=== PATIENT | male | born 1945 | race Two or more races ===

== ENCOUNTER 2022-04-25 20:07 | Inpatient (IN) | payer MEDICARE, OTHER ==
[~2022-04-25] VITALS: Ht 144.8 cm; Wt 55.3 kg
[2022-04-25 20:25] VITALS: BP 146/73
--- NOTE | 2022-04-25 20:30 | NUR ---
RN NOTE: ADMITTED A 76-Y/O, MALE, FROM [facility]. ADMITTED ON A 5150 HOLD FOR GD. PER HOLD, PATIENT WAS WALKING ON THE FREEWAY WITH A BOTTLE OF KETCHUP. UPON FACE TO FACE EVALUATION, PATIENT IS ALERT AND ORIENTED X1, PATIENT IS ANXIOUS, GUARDED, UNKEMPT, DISHEVELED AND POOR HYGIENE. SKIN ASSESSMENT DONE NOTED WITH HEAD LICE. TREATMENT DONE. SHOWERED GIVEN AND AGREED TO SHAVE HIS HAIR PER MD PHELPS ORDER. ALL BELONGINGS WERE SCREENED FOR CONTRABAND. PATIENT REFUSED TO SIGN ALL ADMITTING/CONSENT PAPERWORK DUE TO CONFUSION. PATIENT'S RIGHTS WERE DISCUSSED AND BOOKLET WAS GIVEN. CONTACTED DR. JUNG AND HOSPITALIST OMAIRA PHELPS AND INFORMED THEM OF THE ADMISSION. BED IN LOWEST POSITION, LOCKED. SAFETY PRECAUTIONS MAINTAINED. WILL CONTINUE TO MONITOR Q15 MINS FOR MOOD, SAFETY AND BEHAVIOR. Addendum: 04/26/22 at 0544 by AHMET OSULLIVAN RN PATIENT IS ON CONTACT ISOLATION FOR HEAD LICE. ISOLATION PRECAUTIONS OBSERVED. Addendum: 04/26/22 at 0643 by AHMET OSULLIVAN RN OFFERED PNEUMONIA/FLU VACCINE PATIENT REFUSED.
[2022-04-25] MEDS ORDERED: PERMETHRIN 59 ML BOTTLE TP ONE (21:00)
[2022-04-25] MEDS ORDERED: BLOOD SUGAR DIAGNOSTIC 1 EACH STRIP IN ONE (21:30)
[2022-04-25] MEDS ORDERED: MAGNESIUM HYDROXIDE 30 ML UDC PO PRN (21:30)
[2022-04-25] MEDS ORDERED: MAG HYDROX/AL HYDROX/SIMETH 30 ML UDC PO PRN (21:30)
[2022-04-25] MEDS ORDERED: ACETAMINOPHEN 325 MG TABLET PO PRN (21:30)
[2022-04-26 08:00] VITALS: BP 116/62
--- NOTE | 2022-04-26 08:01 | NUR ---
WOUND CARE CONSULT: PT PRESENTS WITH REDNESS TO SCALP, ESPECIALLY BEHIND RT EAR AND POSTERIOR HEAD, SOME DISCOLORATIONS TO UPPER AND LOWER EXTREMITIES, ALL PRESENT ON ADMISSION. NO DRAINAGE, TENDERNESS OR ITCHING PER PT. PT WAS TREATED FOR HEADLICE PREVIOUSLY. WILL SEE PRN.
--- NOTE | 2022-04-26 11:07 | NUR ---
SHARAD Clinical Note: Pt placed on a 5150 hold for GD. Pt was drinking a ketchup bottle and was on the freeway. Pt unable to give any information. Unsure if pt is homeless or has an apartment. Pt's hold indicates, neighbors report pt has no keys to his apartment and has developed dementia. Pt has no supportive contact at this time to confirm. SHARAD will work with the MD and pt to help coordinate appropriate discharge.
--- NOTE | 2022-04-26 11:07 | NUR ---
SHARAD Initial Discharge Note: Pt unable to give any information. Unsure if pt is homeless or has an apartment. Pt's hold indicates, neighbors report pt has no keys to his apartment and has developed dementia. Pt has no supportive contact at this time to confirm. SHARAD will work with the MD and pt to help coordinate appropriate discharge.
--- NOTE | 2022-04-26 11:07 | NUR ---
Treatment Plan: Pt refused to sign treatment plan and was confused.
[2022-04-26] MEDS: THIAMINE HCL 100 MG TABLET PO SCH (13:31)
[2022-04-26] MEDS: OLANZAPINE 2.5 MG TABLET PO SCH ×2 (13:38→21:44)
--- NOTE | 2022-04-26 15:02 | NUR ---
Social Work Note/Substance Abuse Intervention: Patient was provided with a brief substance abuse intervention and referred to [facility] ([phone]), [facility] ([phone]), and [facility] ([phone]) for drinking alcohol.
--- NOTE | 2022-04-26 15:08 | NUR ---
APS: SHARAD filed for [facility]PS intake #[id number] for self neglect at home.
[2022-04-26 16:00] VITALS: BP 122/65
--- NOTE | 2022-04-26 18:16 | NUR ---
PHYSICAL THERAPY PROFESSOR NOTE PATIENT TOOK SHOWER AT 0800, PATIENT MED COMPLIANT AND COOPERATIVE. WOUND CONSULT COMPLETED AND NO WOUNDS FOUND. PT EVAL CONDUCTED AND PATIENT DETERMINED TO BE AMBULATORY WITH STEADY GAIT. PATIENT IS PRIMARILY PORTUGUESE SPEAKING A0X3.
[2022-04-26 19:55] VITALS: BP 133/64
[2022-04-27 08:00] VITALS: BP 130/94
[2022-04-27] MEDS: OLANZAPINE 2.5 MG TABLET PO SCH ×2 (09:04→20:01)
[2022-04-27] MEDS: THIAMINE HCL 100 MG TABLET PO SCH (09:04)
--- NOTE | 2022-04-27 10:47 | NUR ---
SHARAD Family Contact: SHARAD contacted pt's niece Elisabeth ([phone]) and she reported that pt has been residing at a Senior Housing. She stated that he has been a stubborn man. She reported that his mental illness has declined for the past year. She stated that he was missing for a week from the senior housing and she had filed a police report. She states that every week she visits him to care for him. SHARAD recommended nursing facility and she was agreeable of this. Addendum: 04/28/22 at 1131 by SHARAD PROCTOR Correction niece name is Disha
[2022-04-27 16:00] VITALS: BP 118/81
[2022-04-27] MEDS: LORAZEPAM 0.5 MG TABLET PO PRN (20:01)
[2022-04-27 20:03] VITALS: BP 149/61
[2022-04-27] MEDS: TEMAZEPAM 7.5 MG CAPSULE PO PRN (21:06)
[2022-04-28] MEDS: LORAZEPAM 0.5 MG TABLET PO PRN ×2 (03:13→23:12)
[2022-04-28 08:00] VITALS: BP 138/68
[2022-04-28] MEDS: OLANZAPINE 2.5 MG TABLET PO SCH ×2 (08:39→17:07)
[2022-04-28] MEDS: THIAMINE HCL 100 MG TABLET PO SCH (08:39)
--- NOTE | 2022-04-28 11:31 | NUR ---
SHARAD Family Contact: SHARAD contacted pt's niece Disha ([phone]) who stated that she is unaware if pt has ever had any hallucinations. She is unsure if pt has been diagnosed with any mental illness in the past. She stated within the year he has developed dementia and has been aware of this. She reported he has had one episode of paranoia going into the car thinking that people are after him. SHARAD shared this information with the doctor.
[2022-04-28 16:00] VITALS: BP 134/64
--- NOTE | 2022-04-28 19:20 | NUR ---
RN notes Received Pt in [facility]. Pt is in contact isolation. Pt is alert and orientedX1, calm, confused, disoriented, disorganized, and meds compliant. Pt speaks Mexican and able to make needs known. On room air. no SOB. No S/S of distress noted. VS is stable. Reality orientation provided. snacks is given and provided. Pt ate well. Safety precautions is maintained. Will continue to monitor Q 15 mins checks for safety and behavior.
[2022-04-28 19:53] VITALS: BP 120/63
[2022-04-28] MEDS ORDERED: OLANZAPINE 10 MG TABLET PO SCH (21:00)
[2022-04-28] MEDS: TEMAZEPAM 7.5 MG CAPSULE PO PRN (21:38)
--- NOTE | 2022-04-28 23:15 | NUR ---
RN notes Pt is feeling anxious. administered ativan as ordered for anxiety. safety precautions is maintained. will continue to monitor.
[2022-04-29] MEDS ORDERED: Z GUARD REMEDY 4 OZ OINT TP PRN (00:30)
[2022-04-29 08:00] VITALS: BP 130/63
[2022-04-29] MEDS: THIAMINE HCL 100 MG TABLET PO SCH (08:04)
[2022-04-29] MEDS: OLANZAPINE 2.5 MG TABLET PO SCH ×2 (08:04→16:12)
[2022-04-29] MEDS: Z GUARD REMEDY 4 OZ OINT TP SCH (08:36)
[2022-04-29 16:00] VITALS: BP 126/70
[2022-04-29 19:58] VITALS: BP 138/65
[2022-04-29 20:00] VITALS: BP 138/65
[2022-04-29] MEDS ORDERED: OLANZAPINE 10 MG TABLET PO SCH (21:00)
--- NOTE | 2022-04-30 05:15 | NUR ---
CLOSING NOTES: WHEN NAME SPOKEN WILL OPEN EYES AND GIVE EYE CONTACT, THEN CLOSE THEM AGAIN WHEN MEDICATION PLACED IN APPLESAUCE AND SPOON TOUCHING HIS LIPS HE WILL OPEN HIS MOUTH AND TAKE THE MEDICATION AND SWALLOW W/O PROBLEM. CONTACT ISOLATION D/T LICE INFESTATION WHEN ADMITTED SLEPT THRU THE NIGHT, WHEN CHECKING IN ON HIM NOTED HE CHANGES HIS OWN POSITION AUGUST OLIVAREZ
--- NOTE | 2022-04-30 07:40 | NUR ---
RN notes Received Pt in bed, Pt is in contact isolation.alert and orientedX1, calm, disoriented, disorganized, and meds compliant. Pt speaks Maltese and able to make needs known. On room air. no SOB. No S/S of distress noted. VS is stable. Reality orientation provided. snacks is given and provided. Pt ate well. Safety precautions is maintained. Will continue to monitor Q 15 mins checks for safety and behavior.
[2022-04-30 08:00] VITALS: BP 115/62
[2022-04-30] MEDS: OLANZAPINE 2.5 MG TABLET PO SCH ×2 (08:18→16:25)
[2022-04-30] MEDS: THIAMINE HCL 100 MG TABLET PO SCH (08:18)
[2022-04-30] MEDS: Z GUARD REMEDY 4 OZ OINT TP SCH (09:12)
--- NOTE | 2022-04-30 09:19 | NUR ---
Court Notification: SHARAD contacted pt's niece Disha ([phone]) and left a voicemail of [phone] hearing today.
[2022-04-30 16:00] VITALS: BP 115/66
--- NOTE | 2022-04-30 16:00 | NUR ---
Court Hearing: Patient's court hearing for [id number] hearing was today and it was upheld for GD.
--- NOTE | 2022-04-30 18:28 | NUR ---
RN notes Pt stays in room all throughout the shift, still in contact isolation. Patient is ambulatory, able to to make needs known. alert and orientedx1, calm, confused and meds compliant. On room air. no SOB. No S/S of distress noted. VS is stable. Reality orientation provided. snacks is given in between meals, care rendered. Kept patient tidy and comfortable. Safety precautions is maintained. Will endorsed to next nurse.
--- NOTE | 2022-04-30 18:47 | NUR ---
Dr. Gilbert and Karl CASTANO made aware of the EKG and no new order.
--- NOTE | 2022-04-30 19:27 | NUR ---
GPS RN NOTE, RECEIVED PATIENT AWAKE AND IN BED, NO S/S OR COMPLAINTS OF PAIN AT THIS TIME. PATIENT IS DISPLAYING NO S/S OF APPARENT DISTRESS AT THIS TIME. PATIENT BREATHING IS UNLABORED WITH EQUAL RISE AND FALL OF THE CHEST. PATIENT IS ALERT AND ORIENTED X 2 ON ROOM AIR WITH A SPO2 98%. PATIENT IS COMPLIANT WITH MEDICATION, ANXIOUS, RESTLESS, PARANOID AT TIMES, CONFUSED, FORGETFUL, AND COOPERATIVE. PATIENT DENIES SUICIDAL AND HOMICIDAL IDEATIONS AT THIS TIME. PATIENT ASSISTED WITH TURNING AND REPOSITIONING Q2HR AND PRN FOR COMFORT AND CIRCULATION. PATIENT HAS NO NEEDS AT THIS TIME. PATIENT EDUCATED ON THE USE OF THE CALL GALICIA. PATIENT BED SIDE RAILS UP X 2 FOR SAFETY. PATIENT BED IS LOCKED AND LOW. WILL CONTINUE TO MONITOR THIS PATIENT Q15 MINUTES WITH THE HELP OF STAFF TO MAINTAIN SAFETY.
[2022-04-30 20:44] VITALS: BP 121/62
[2022-04-30] MEDS: OLANZAPINE 10 MG TABLET PO SCH (21:18)
[2022-05-01 08:00] VITALS: BP 113/67
[2022-05-01] MEDS: THIAMINE HCL 100 MG TABLET PO SCH (08:07)
[2022-05-01] MEDS: OLANZAPINE 2.5 MG TABLET PO SCH ×2 (08:07→16:31)
[2022-05-01] MEDS: Z GUARD REMEDY 4 OZ OINT TP SCH (10:30)
--- NOTE | 2022-05-01 10:35 | NUR ---
RN Notes: Received pt.awake in bed, responsive to staffs and kenyan speaking. Ate 100% for breakfast, compliant on meds and morning care rendered. Pt. isolates in her room, unkept and quiet. Encouraged to verbalize feelings and encouraged to take shower. Needs attended, no distress and no agitation noted. Will continue to monitor for safety.
[2022-05-01] MEDS: LORAZEPAM 0.5 MG TABLET PO PRN (14:31)
[2022-05-01 16:00] VITALS: BP 135/71
[2022-05-01 20:08] VITALS: BP 122/65
[2022-05-01] MEDS: OLANZAPINE 10 MG TABLET PO SCH (20:16)
[2022-05-02 08:00] VITALS: BP 150/70
[2022-05-02] MEDS: Z GUARD REMEDY 4 OZ OINT TP SCH (09:13)
[2022-05-02] MEDS: OLANZAPINE 2.5 MG TABLET PO SCH ×2 (09:13→17:33)
[2022-05-02] MEDS: THIAMINE HCL 100 MG TABLET PO SCH (09:13)
[2022-05-02] MEDS ORDERED: PERMETHRIN 59 ML BOTTLE TP ONE (13:00)
[2022-05-02 16:00] VITALS: BP 131/70
--- NOTE | 2022-05-02 17:00 | NUR ---
NURSE NOTE: SECOND TREATMENT OF NIX DONE. PT RORY WELL, NO VISIBLE LICE NOTED.
--- NOTE | 2022-05-02 18:30 | NUR ---
NURSE NOTE: SWELLING NOTED TO FEET BILAT. ELEVATED LEGS WHILE IN CHAIR.
[2022-05-02 20:08] VITALS: BP 137/67
[2022-05-02] MEDS: OLANZAPINE 10 MG TABLET PO SCH (20:29)
[2022-05-03 08:00] VITALS: BP 137/65
[2022-05-03] MEDS: THIAMINE HCL 100 MG TABLET PO SCH (08:18)
[2022-05-03] MEDS: Z GUARD REMEDY 4 OZ OINT TP SCH (08:18)
[2022-05-03] MEDS: OLANZAPINE 2.5 MG TABLET PO SCH ×2 (08:18→17:11)
--- NOTE | 2022-05-03 14:20 | NUR ---
SNF Referral: SHARAD sent clinicals to [facility] [phone], to [facility] for placement. SW sent H & P, progress notes, and medication list.
[2022-05-03 16:00] VITALS: BP 137/62
[2022-05-03 20:01] VITALS: BP 110/58
[2022-05-03] MEDS: OLANZAPINE 10 MG TABLET PO SCH (20:19)
[2022-05-04] MEDS: TEMAZEPAM 7.5 MG CAPSULE PO PRN ×2 (01:23→22:10)
[2022-05-04 08:00] VITALS: BP 109/66
[2022-05-04] MEDS: THIAMINE HCL 100 MG TABLET PO SCH (08:45)
[2022-05-04] MEDS: OLANZAPINE 2.5 MG TABLET PO SCH ×2 (08:45→17:10)
[2022-05-04] MEDS: Z GUARD REMEDY 4 OZ OINT TP SCH (09:29)
--- NOTE | 2022-05-04 10:40 | NUR ---
SNF Contact: SW spoke with [facility] [phone], to Terry higuera who stated pt is accepted.
[2022-05-04 16:00] VITALS: BP 112/63
[2022-05-04 20:01] VITALS: BP 144/64
[2022-05-04] MEDS: OLANZAPINE 10 MG TABLET PO SCH (21:05)
[2022-05-04] MEDS: LORAZEPAM 0.5 MG TABLET PO PRN (21:06)
[2022-05-05 08:00] VITALS: BP 133/63
--- NOTE | 2022-05-05 08:26 | NUR ---
WOUND CARE CONSULT: PT SEEN FOR LEFT LOWER LEG REDNESS. DR FLYNN CALLED FOR DPM CONSULT. MD IN AGREEMENT WITH PLAN OF CARE.
[2022-05-05] MEDS: THIAMINE HCL 100 MG TABLET PO SCH (09:28)
[2022-05-05] MEDS: OLANZAPINE 2.5 MG TABLET PO SCH ×2 (09:28→17:44)
[2022-05-05] MEDS: Z GUARD REMEDY 4 OZ OINT TP SCH (09:55)
[2022-05-05 16:00] VITALS: BP 122/59
[2022-05-05 20:41] VITALS: BP 122/64
[2022-05-05] MEDS: OLANZAPINE 10 MG TABLET PO SCH (21:29)
[2022-05-05] MEDS: TEMAZEPAM 7.5 MG CAPSULE PO PRN (22:27)
[2022-05-06] MEDS: LORAZEPAM 0.5 MG TABLET PO PRN (01:13)
[2022-05-06 08:00] VITALS: BP 117/76
[2022-05-06] MEDS: OLANZAPINE 2.5 MG TABLET PO SCH (08:32)
[2022-05-06] MEDS: THIAMINE HCL 100 MG TABLET PO SCH (08:32)
[2022-05-06] MEDS: Z GUARD REMEDY 4 OZ OINT TP SCH (08:51)
--- NOTE | 2022-05-06 09:50 | NUR ---
RN Notes: Received pt. asleep in bed, breathing is even and unlabored. Ate 100% for breakfast, compliant on meds. Pt. is confused and disoriented and was reoriented to person, place, day, date and situation. Pt. is unkempt and disheveled and offered to take shower. Needs attended and will continue to monitor for safety.
[2022-05-06 16:00] VITALS: BP 122/67
--- NOTE | 2022-05-06 19:30 | NUR ---
GPS RN NOTE, RECEIVED PATIENT AWAKE AND IN BED, NO S/S OR COMPLAINTS OF PAIN AT THIS TIME. PATIENT IS DISPLAYING NO S/S OF APPARENT DISTRESS AT THIS TIME. PATIENT BREATHING IS UNLABORED WITH EQUAL RISE AND FALL OF THE CHEST. PATIENT IS ALERT AND ORIENTED X 1 ON ROOM AIR WITH A SPO2 98%. PATIENT IS COMPLIANT WITH MEDICATION, ANXIOUS, RESTLESS, PARANOID AT TIMES, CITIZEN OF [place] SPEAKING, AND COOPERATIVE. PATIENT DENIES SUICIDAL AND HOMICIDAL IDEATIONS AT THIS TIME. PATIENT ASSISTED WITH TURNING AND REPOSITIONING Q2HR AND PRN FOR COMFORT AND CIRCULATION. PATIENT HAS NO NEEDS AT THIS TIME. PATIENT EDUCATED ON THE USE OF THE CALL GALICIA. PATIENT BED SIDE RAILS UP X 2 FOR SAFETY. PATIENT BED IS LOCKED AND LOW. WILL CONTINUE TO MONITOR THIS PATIENT Q15 MINUTES WITH THE HELP OF STAFF TO MAINTAIN SAFETY.
[2022-05-06 20:21] VITALS: BP 132/60
[2022-05-06] MEDS: OLANZAPINE 10 MG TABLET PO SCH (21:20)
[2022-05-07] MEDS: TEMAZEPAM 7.5 MG CAPSULE PO PRN (01:51)
--- NOTE | 2022-05-07 01:51 | NUR ---
GPS RN NOTE, PATIENT HAS A COMPLAINT OF NOT BEING ABLE TO SLEEP AND IS REQUESTING RESTORIL AT THIS TIME. PATIENT VITAL SIGNS ARE STABLE. GAVE RESTORIL 7.5MG PO QHS PRN ORDERED. WILL REASSESS FOR INSOMNIA AND I WILL CONTINUE TO MONITOR THIS PATIENT WITH THE HELP OF STAFF.
[2022-05-07 08:00] VITALS: BP 133/76
[2022-05-07] MEDS: OLANZAPINE 2.5 MG TABLET PO SCH (09:48)
[2022-05-07] MEDS: THIAMINE HCL 100 MG TABLET PO SCH (09:48)
[2022-05-07] MEDS: Z GUARD REMEDY 4 OZ OINT TP SCH (09:48)
--- NOTE | 2022-05-07 10:35 | NUR ---
RN Notes: Received pt. asleep in bed, breathing is even and unlabored. Ate 100% for breakfast, compliant on meds. Pt. is confused and disoriented and was reoriented to person, place, day, date and situation. No distress and no agitation noted. Needs attended and will continue to monitor for safety.
[2022-05-07 15:00] LABS: BASOPHILS % (AUTO) 0.5 % (0.0-2.0); EOSINOPHILS % (AUTO) 2.2 % (0.0-6.0); HEMATOCRIT 36 % (39-51); HEMOGLOBIN 11.9 g/dL (13.5-17.5); LYMPHOCYTES # (AUTO) 2.1 K/uL (0.8-4.8); LYMPHOCYTES % (AUTO) 24.8 % (20.0-44.0); MEAN CORPUSCULAR HGB CONC 33 g/dl (31.0-36.0); MEAN CORPUSCULAR VOLUME 93 fL (80-96); MONOCYTES # (AUTO) 0.7 K/uL (0.1-1.30); MONOCYTES % (AUTO) 7.9 % (2.0-12.0); NEUTROPHILS # (AUTO) 5.4 K/uL (1.8-8.9); NEUTROPHILS % (AUTO) 64.6 % (43.0-81.0); PLATELET COUNT (AUTO) 192 K/uL (150-450); RED BLOOD CELL COUNT(AUTO) 3.91 MIL/uL (4.5-6.0); WHITE BLOOD COUNT (AUTO) 8.4 K/uL (4.3-11.0)
[2022-05-07 16:00] VITALS: BP 131/71
[2022-05-07 16:35] LABS: ALBUMIN 3.1 g/dL (3.4-5.0); BILIRUBIN,TOTAL 0.2 mg/dL (0.2-1.0); CALCIUM, SERUM 8.9 mg/dL (8.5-10.1); CREATININE 0.7 mg/dL (0.6-1.3); POTASSIUM 4.1 mmol/L (3.5-5.1); TOTAL PROTEIN, SERUM 7.2 g/dL (6.4-8.2)
[2022-05-07 20:00] VITALS: BP 136/71
--- NOTE | 2022-05-07 20:05 | NUR ---
GPS RAILROAD AUDITOR NOTE.RN Notes:RECEIVED PATIENT ASLEEP COMFORTABLY IN BED.BREATHING EVEN AND NON-LABORED.MEDICATION COMPLIANT,CONFUSED AND DISORIENTED.REORIENTED TO PERSON ,PLACE,DAY,DATE AND SITUATION.NO DISTRESS NOTED.ALL NEED MET AND ANTICIPATED .WILL CONTINUE TO MONITOR FOR SAFETY AND BEHAVIOR. Received pt. asleep in bed, breathing is even and unlabored.compliant on meds. Pt. is confused and disoriented and was reoriented to person, place, day, date and situation. No distress and no agitation noted. Needs attended and will continue to monitor for safety. Addendum: 05/07/22 at 2016 by JUAN M DELGADILLO RN DISREGARD 2ND PARAGRAPH.
[2022-05-07] MEDS: OLANZAPINE 10 MG TABLET PO SCH (21:43)
[2022-05-08] MEDS: TEMAZEPAM 7.5 MG CAPSULE PO PRN (01:44)
--- NOTE | 2022-05-08 01:45 | NUR ---
GPS TECHNICAL TRANSLATOR NOTE, PATIENT HAS A COMPLAINT OF NOT BEING ABLE TO SLEEP AND IS REQUESTING RESTORIL AT THIS TIME. PATIENT VITAL SIGNS ARE STABLE. GAVE RESTORIL 7.5MG PO QHS PRN ORDERED. WILL REASSESS FOR INSOMNIA AND I WILL CONTINUE TO MONITOR THIS PATIENT WITH THE HELP OF STAFF.
--- NOTE | 2022-05-08 02:44 | NUR ---
GPS COOK CAMP NOTES:PATIENT C/O OF INSONMIA .ADMINISTERED PRN RESTORIL 7.5 MG NOT EFFECTIVE
[2022-05-08 08:00] VITALS: BP 129/61
[2022-05-08] MEDS: OLANZAPINE 2.5 MG TABLET PO SCH (08:39)
[2022-05-08] MEDS: THIAMINE HCL 100 MG TABLET PO SCH (08:39)
[2022-05-08] MEDS: Z GUARD REMEDY 4 OZ OINT TP SCH (10:38)
[2022-05-08 16:00] VITALS: BP 126/62
[2022-05-08] MEDS: LORAZEPAM 0.5 MG TABLET PO PRN (16:38)
--- NOTE | 2022-05-08 16:41 | NUR ---
RN-NOTES NOTED PATIENT VERY ANXIOUS,WANDERING TO OTHER ROOMS AND WANTED TO GO HOME, REDIRECTED AND ATIVAN 0.5MG P.O GIVEN PRN ORDER. WILL CONT. MONITORING FOR SAFETY AND BEHAVIOR.
--- NOTE | 2022-05-08 17:45 | NUR ---
RN-NOTES PATIENT IN THE DAY ROOM UP IN THE ELIZABETH CHAIR AWAKE,A/O X2,CALM NO ACUTE DISTRESS NOTED.
--- NOTE | 2022-05-08 18:02 | NUR ---
RN-NOTES PATIENT IS VISIBLE IN THE UNIT,A/OX 2, NOTED PATIENT WANDERING TO OTHER PATIENT'S ROOM,NEEDS FREQUENT REDIRECTIONS. COMPLIANT WITH MEDICATIONS.AMBULATORY STEADY GAIT. ALL NEEDS ATTENDED AND ANTICIPATED. WILL CONT. MONITORING FOR SAFETY AND BEHAVIOR.WILL ENDORSE TO INCOMING NURSE FOR THE CONTINUITY OF CARE.
--- NOTE | 2022-05-08 19:53 | NUR ---
AUTO SERVICE ADVISOR NOTES RECEIVED PATIENT AWAKE .ALERT AND ORIENTED X2.BREATHING EVEN AND NON-LABORED NO DISTRESS NOTED. NOTED PATIENT WANDERING TO OTHER PATIENT'S ROOM,NEEDS FREQUENT REDIRECTIONS. COMPLIANT WITH MEDICATIONS.AMBULATORY STEADY GAIT. ALL NEEDS ATTENDED AND ANTICIPATED. WILL CONT. MONITORING FOR SAFETY AND BEHAVIOR.
[2022-05-08 20:19] VITALS: BP 137/61
[2022-05-08] MEDS: OLANZAPINE 10 MG TABLET PO SCH (21:19)
[2022-05-09] MEDS: LORAZEPAM 0.5 MG TABLET PO PRN (03:17)
--- NOTE | 2022-05-09 03:20 | NUR ---
FORESTRY SUPPORT SPECIALIST-NOTES NOTED PATIENT VERY ANXIOUS,REQUESTING ATIVAN 0.5MG P.O GIVEN PRN ORDER. WILL CONT. MONITORING FOR SAFETY AND BEHAVIOR.
[2022-05-09 08:00] VITALS: BP 124/58
[2022-05-09] MEDS: THIAMINE HCL 100 MG TABLET PO SCH (08:32)
[2022-05-09] MEDS: OLANZAPINE 2.5 MG TABLET PO SCH (08:35)
[2022-05-09] MEDS: Z GUARD REMEDY 4 OZ OINT TP SCH (08:35)
--- NOTE | 2022-05-09 19:30 | NUR ---
RN OPENING NOTES RECEIVED PATIENT AWAKE IN BED. PATIENT IS ALERT TIMES 2. BERMUDIAN SPEAKER. ABLE TO MAKE NEEDS KNOWN. NO ISOLATION. NO PAIN NOTED. NO SOB NOTED . NO DISTRESS NOTED. AMBULATORY. NO ANXIETY NOTED. NO DISCOMFORT NOTED AT THIS TIME. ALL SAFETY MEASURES IN PLACE. BED LOCKED IN THE LOWEST POSITION. TABLE IN EASY REACH. SIDE RAILS UP TIMES 2. WILL CONTINUE TO MONITOR CLOSELY.
[2022-05-09] MEDS: OLANZAPINE 10 MG TABLET PO SCH (20:02)
[2022-05-09 20:24] VITALS: BP 101/57
[2022-05-10 08:00] VITALS: BP 107/63
--- NOTE | 2022-05-10 08:08 | NUR ---
SW Discharge Note: Patient will be discharged to senior living facility [facility] [address], [place] [address]; ). Please arrange transportation at 1PM. Box Annealer spoke with Terry degree clerk at [facility]; ([phone], who stated patient will be accepted today. Pts patrick Gauhtier ([phone]) is aware and agreeable. Patient is alert and oriented x2 and is unable to plan for self-care. Patient denies any suicidal or homicidal ideations. Patient is aware and agreeable with discharge plans. Patient will continue to follow-up with (psychiatrist) Dr. Gilbert [address] [facility] [address], [place] [address]; ([phone]) and (weblogic administrator) Dr. Gallegos [address] [facility] [address], [place] [address]; ([phone]). Patient presents with euthymic and congruent mood.
[2022-05-10] MEDS: THIAMINE HCL 100 MG TABLET PO SCH (08:21)
[2022-05-10] MEDS: Z GUARD REMEDY 4 OZ OINT TP SCH (08:21)
[2022-05-10] MEDS: OLANZAPINE 2.5 MG TABLET PO SCH (08:21)
--- NOTE | 2022-05-10 11:10 | NUR ---
RN- NOTES DR. JUNG ORDERED TO DISCONTINUE HOLD AND DISCHARGE TO [facility], [address] [place] [address]. DR. JUNG ORDERED TO CONTINUE WITH ALL MEDICATIONS, INCLUDING PRN'S UPON DISCHARGE.
--- NOTE | 2022-05-10 13:45 | NUR ---
NURSE NOTE: 76 YEAR OLD MALE DISCHARGED TO [facility] IN [place]. COMPLIANT WITH MEDICATIONS, COOPERATIVE WITH TREATMENT PLANS. PT DENIES SI/HI AND INSTRUCTED TO GO TO NURSE OR CALL 911 IF DEVELOPING SI/HI. BEHAVIOR IMPROVED, PSYCHIATRIC TX PLANS MET, MEDICAL TX PLANS DEFERRED FOR CONTINUAL MONITORING. DR JUNG DISCONTINUED HOLD AND BOTH DR JUNG AND DR MALDONADO DISCHARGED THE PT. PT EDUCATED ABOUT AFTER CARE PLAN AND COPY PROVIDED. RETURNED PERSONAL BELONGING TO PT. MEDICATIONS RECONCILED WITH DR JUNG AND DR MALDONADO. REPORT GIVEN TO JESSICA HERNÁNDEZ AT [facility]. PT UNABLE TO SIGN DISCHARGE PAPERWORK. WOUND PICTURES TAKEN AND DOCUMENTED IN CHART. PT LEFT THE UNIT AT 1345 VIA AMBULANCE.
== END 2022-05-10 13:45 | DRG 885 ==
LOC: GPS 20:07
PROVIDERS: ADMIT Psychiatry & Neurology Psychosomatic Medicine; ATTEND Internal Medicine
DX: F25.9 Schizoaffective disorder, unspecified (principal); F41.9 Anxiety disorder, unspecified; F10.90 Alcohol use, unspecified, uncomplicated; Y90.9 Presence of alcohol in blood, level not specified; F03.C0 Unspecified dementia, severe, without behavioral disturbance, psychotic disturbance, mood disturbance, and anxiety; F29 Unspecified psychosis not due to a substance or known physiological condition; B85.2 Pediculosis, unspecified
CPT/HCPCS: 36415; 70450-TC; 80053-TC; 82962-TC; 85025-TC; 87081-TC; 97110-TC; 97116-TC

== ENCOUNTER 2022-09-03 13:09 | Inpatient (IN) | payer MEDICARE, OTHER ==
[~2022-09-03] VITALS: Ht 157.5 cm; Wt 50.3 kg
--- NOTE | 2022-09-03 13:30 | NUR ---
RECEIVED PT 76 YRS OLD MALE CAME FROM ASSISSTING LEVING BY EMT ELENITALANICHOLAS FOR EVALUATION OF RT HAND DRANING
--- NOTE | 2022-09-03 14:00 | NUR ---
SEEN BY DR. MCCRARY
--- NOTE | 2022-09-03 14:25 | NUR ---
BLOOD DROW BY LAB TACH
[2022-09-03] MEDS ORDERED: PIPERACILLIN /TAZOBACTAM 3.375 G in IV D5W 50 ML IV ONE (14:30)
[2022-09-03] MEDS ORDERED: VANCOMYCIN 1 GM in IV D5W 250 ML IV ONE (14:30)
[2022-09-03 15:07] LABS: BASOPHILS % (AUTO) 0.3 % (0.0-2.0); EOSINOPHILS % (AUTO) 2.1 % (0.0-6.0); HEMATOCRIT 33 % (39-51); HEMOGLOBIN 10.9 g/dL (13.5-17.5); LYMPHOCYTES # (AUTO) 1.1 K/uL (0.8-4.8); LYMPHOCYTES % (AUTO) 14.4 % (20.0-44.0); MEAN CORPUSCULAR HGB CONC 33 g/dl (31.0-36.0); MEAN CORPUSCULAR VOLUME 89 fL (80-96); MONOCYTES # (AUTO) 0.7 K/uL (0.1-1.30); MONOCYTES % (AUTO) 8.9 % (2.0-12.0); NEUTROPHILS # (AUTO) 5.7 K/uL (1.8-8.9); NEUTROPHILS % (AUTO) 74.3 % (43.0-81.0); PLATELET COUNT (AUTO) 208 K/uL (150-450); RED BLOOD CELL COUNT(AUTO) 3.69 MIL/uL (4.5-6.0); WHITE BLOOD COUNT (AUTO) 7.7 K/uL (4.3-11.0)
[2022-09-03 15:19] LABS: CALCIUM, SERUM 8.9 mg/dL (8.5-10.1); CARBON DIOXIDE 23 mmol/L (21-32); CHLORIDE 104 mmol/L (98-107); CREATININE 0.7 mg/dL (0.6-1.3); GLUCOSE 128 mg/dL (74-106); POTASSIUM 3.8 mmol/L (3.5-5.1); SODIUM SERUM 137 mmol/L (136-145); UREA NITROGEN, BLOOD 17 mg/dL (7-18)
--- NOTE | 2022-09-03 15:30 | NUR ---
MOVE SHEET SUBMITTED.
[2022-09-03 15:33] LABS: ALANINE AMINOTRANSFERASE 20 U/L (12-78); ALBUMIN 2.3 g/dL (3.4-5.0); ALKALINE PHOSPHATASE 72 U/L (46-116); ASPARTATE AMINOTRANSFERASE 13 U/L (15-37); BILIRUBIN,DIRECT 0.1 mg/dL (0.0-0.2); BILIRUBIN,TOTAL 0.4 mg/dL (0.2-1.0); TOTAL PROTEIN, SERUM 6.9 g/dL (6.4-8.2)
[2022-09-03] MEDS ORDERED: ACET-868 PO (15:47)
[2022-09-03] MEDS ORDERED: THIA100T88 PO (15:47)
[2022-09-03] MEDS ORDERED: OLAN2.5T3 PO (15:47)
[2022-09-03] MEDS ORDERED: MAGN400O6 PO (15:47)
[2022-09-03] MEDS ORDERED: OLAN7.5T3 PO (15:47)
[2022-09-03] MEDS ORDERED: MAG-151 PO (15:47)
--- NOTE | 2022-09-03 16:19 | NUR ---
[facility] CALLED, ORACLE EBS CONSULTANT PAGED.
--- NOTE | 2022-09-03 16:50 | NUR ---
GOT BED 307-1 ADMITTING INFORMED.
--- NOTE | 2022-09-03 16:58 | NUR ---
REPORT GIVEN TO ROMY JIANG FOR ROBERT
[2022-09-03 17:00] VITALS: BP 118/65; TEMP 98.8; O2SAT 96
[2022-09-03 17:04] LABS: BAND % (MANUAL) 1 % (0.0-5.0); EOSINOPHILS % (MANUAL) 2 % (0-4); LYMPHOCYTES % (MANUAL) 24 % (16-48); MONOCYTES % (MANUAL) 5 % (0-11.0); NEUTROPHILS % (MANUAL) 67 (42-76); REACTIVE LYMPHOCYTES 1 % (0-0)
--- NOTE | 2022-09-03 17:23 | NUR ---
Received pt from ER, A/O x1 confused. 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 IV access at left wrist, 18G, Vitals taken: BP-118/65; HR- 85; RR-17; Temp-98.8; [id number] on room air. Skin assessment conducted: No edema present, identified cellulitis on right hand serous exudate present on admission. Photos taken. Belongings accounted for, made patient comfortable, safety protocol activated. Will continue to monitor
--- NOTE | 2022-09-03 18:53 | NUR ---
Offered patient to cover right hand wound with xeroform petrolatum dressing - patient refused, charge nurse aware.
--- NOTE | 2022-09-03 19:00 | NUR ---
RN OPENING NOTE PT IS AWAKE IN BED. PT IS A/O X 1-2, ST HELENIAN SPEAKING & CONFUSED. PT IS IN RA TOLERATING WELL, BREATHING EVEN AND UNLABORED @ THIS TIME. PT IV PRESENT ON THE LEFT WRIST #18G SALINE LOCK, PATENT, INTACT AND FLUSHES WELL W/ NO S&SX ON INFILTRATION @ SITE NOTED. SAFETY MEASURE IS IN PLACE. BED IN LOWEST AND LOCKED POSITION. SIDE RAILS UP X 4. BEDSIDE TABLE AND CALL LIGHT IS EASY REACH. BED ALARM IS ON. WILL CONTINUE TO MONITOR PT ACCORDINGLY.
--- NOTE | 2022-09-03 19:13 | NUR ---
Patient asleep, arousable A/O x1-2, able to make needs known. No sob nor complains of pain or distress noted. Safety protocol in placed, will endorse to lieutenant shift supervisor nurse for marley
[2022-09-03] MEDS ORDERED: Z GUARD REMEDY 4 OZ OINT TP PRN (19:30)
[2022-09-03] MEDS ORDERED: ONDANSETRON HCL/PF 4 MG/2 ML VIAL IVP PRN (19:30)
[2022-09-03] MEDS ORDERED: MAGNESIUM HYDROXIDE 30 ML UDC PO PRN (19:30)
[2022-09-03] MEDS ORDERED: ACETAMINOPHEN 325 MG TABLET PO PRN (19:30)
[2022-09-03] MEDS ORDERED: MORPHINE SULFATE INJ 2 MG/ML DISP.SYRIN IV PRN (19:30)
[2022-09-03 20:00] VITALS: BP 122/63; TEMP 97.9; O2SAT 98
[2022-09-03] MEDS: ZOSYN IVPB 3.375 G in IV D5W 50ml IV SCH (20:47)
[2022-09-03] MEDS: ENOXAPARIN SODIUM 40 MG/0.4 ML DISP.SYRIN SQ SCH (20:51)
[2022-09-03] MEDS: OLANZAPINE 2.5 MG TABLET PO SCH (21:11)
[2022-09-04] MEDS: VANCOMYCIN HCL 0.75 GM in IV D5W 250 ML IV SCH ×2 (01:53→13:40)
[2022-09-04] MEDS: ZOSYN IVPB 3.375 G in IV D5W 50ml IV SCH ×4 (01:54→19:51)
[2022-09-04 06:24] LABS: BASOPHILS % (AUTO) 0.4 % (0.0-2.0); EOSINOPHILS % (AUTO) 2.2 % (0.0-6.0); HEMATOCRIT 33 % (39-51); LYMPHOCYTES # (AUTO) 1.8 K/uL (0.8-4.8); LYMPHOCYTES % (AUTO) 19.1 % (20.0-44.0); MEAN CORPUSCULAR HGB CONC 33 g/dl (31.0-36.0); MEAN CORPUSCULAR VOLUME 90 fL (80-96); MONOCYTES # (AUTO) 0.7 K/uL (0.1-1.30); MONOCYTES % (AUTO) 8.1 % (2.0-12.0); NEUTROPHILS # (AUTO) 6.5 K/uL (1.8-8.9); NEUTROPHILS % (AUTO) 70.2 % (43.0-81.0); PLATELET COUNT (AUTO) 199 K/uL (150-450); RED BLOOD CELL COUNT(AUTO) 3.71 MIL/uL (4.5-6.0); WHITE BLOOD COUNT (AUTO) 9.2 K/uL (4.3-11.0)
--- NOTE | 2022-09-04 06:38 | NUR ---
RN CLOSING NOTE PT IS AWAKE & RESTING COMFORTABLY IN BED. PT IS A/O X 1-2, RESPONSIVE AND FOLLOWS VERBAL COMMAND. PT IS IN RA W/ NO S&SX OF RESPIRATORY DISTRESS @ THIS TIME. PT IV PRESENT ON THE LEFT WRIST #18G SALINE LOCKED, PATENT, INTACT AND FLUSHES WELL W/ NO S&SX ON INFILTRATION @ SITE NOTED. SAFETY MEASURE IS IN PLACE. BED IN LOWEST AND LOCKED POSITION. SIDE RAILS UP X 4. BEDSIDE TABLE AND CALL LIGHT IS EASY REACH. BED ALARM IS ON. WILL ENDORSE PT TO THE NEXT SHIFT FOR ROBERT.
[2022-09-04 06:49] LABS: CALCIUM, SERUM 9.3 mg/dL (8.5-10.1); CREATININE 0.9 mg/dL (0.6-1.3); MAGNESIUM 2.1 mg/dL (1.8-2.4); PHOSPHORUS 3.6 mg/dL (2.5-4.9)
--- NOTE | 2022-09-04 07:10 | NUR ---
MS RN OPENING NOTE RECEIVED PATIENT IN BED, ASLEEP BUT EASY TO AROUSE.A/O X 1-2, GEORGIAN SPEAKING & CONFUSED. NO SIGNS OF ACUTE DISTRESS NOTED. ON ROOM AIR, TOLERATING WELL. NO SOB, BREATHING EVEN AND UNLABORED.WITH IV ACCESS ON LEFT WRIST #18G SALINE LOCKED; PATENT, INTACT AND FLUSHES WELL. PATIENT DENIES ANY PAIN AT THIS TIME. SAFETY MEASURES IS IN PLACE. BED IN LOWEST AND LOCKED POSITION. SIDE RAILS UP X 4. BEDSIDE TABLE AND CALL LIGHT IS EASY REACH. BED ALARM IS ON. WILL CONTINUE WITH PLAN OF CARE.
[2022-09-04] MEDS: PANTOPRAZOLE 40 MG TABLET.DR PO SCH (07:22)
[2022-09-04 08:00] VITALS: BP 160/64; TEMP 98.9; O2SAT 97
[2022-09-04] MEDS: THIAMINE HCL 100 MG TABLET PO SCH (08:33)
[2022-09-04] MEDS: OLANZAPINE 2.5 MG TABLET PO SCH ×2 (08:34→21:11)
[2022-09-04 09:05] VITALS: BP 136/64
--- NOTE | 2022-09-04 09:05 | NUR ---
MS RN NOTES ORTHOPEDIC DESIGNER REPORTED THAT THE PATIENT'S BLOOD PRESSURE IS 160/64. RETOOK BLOOD PRESSURE AND IT'S 136/64. WILL CONTINUE TO MONITOR.
--- NOTE | 2022-09-04 10:45 | NUR ---
MS RN NOTES PATIENT WAS SEEN BY PT. PATIENT WAS ABLE TO TOLERATE PT TREATMENT AND WAS ABLE TO GET OUT OF BED AND WALK AROUND THE UNIT WITH THE HELP OF THE PT.
[2022-09-04] MEDS ORDERED: DEXTROSE 50%-WATER 50 ML DISP.SYRIN IV PRN (11:00)
[2022-09-04] MEDS: BLOOD SUGAR DIAGNOSTIC 1 EACH STRIP IN SCH ×3 (11:27→21:42)
[2022-09-04] MEDS: INSULIN REGULAR, HUMAN 100 UNIT/ML 3 ML VIAL SQ PRN ×3 (12:25→21:46)
[2022-09-04 16:00] VITALS: BP 118/75; TEMP 97.6; O2SAT 98
--- NOTE | 2022-09-04 18:46 | NUR ---
MS RN CLOSING NOTES PATIENT IN BED, ASLEEP BUT EASY TO AROUSE. A/O X 1-2, SOUTH KOREAN SPEAKING & CONFUSED. NO SIGNS OF ACUTE DISTRESS NOTED. ON ROOM AIR, TOLERATED WELL. NO SOB, BREATHING EVEN AND UNLABORED. WITH IV ACCESS ON LEFT WRIST #20G SALINE LOCKED; PATENT, INTACT AND FLUSHES WELL. PATIENT DENIES ANY PAIN AT THIS TIME. WOUND CARE DONE DURING THE SHIFT. ALL DUE MEDS GIVEN. ALL NURSING NEEDS ATTENDED. SAFETY MEASURES IS IMPLEMENTED. BED IN LOWEST AND LOCKED POSITION. SIDE RAILS UP X 3. BEDSIDE TABLE AND CALL LIGHT IS WITHIN EASY REACH. BED ALARM IS ON. WILL ENDORSE TO ACCT EXEC NURSE FOR CONTINUITY OF CARE.
--- NOTE | 2022-09-04 19:00 | NUR ---
RN OPENING NOTE RECEIVED PT AWAKE IN BED. PT IS A/O X 1-2 ITALIAN SPEAKING AND CONFUSED. PT IS IN RA TOLERATING WELL, BREATHING EVEN AND UNLABORED @ THIS TIME. PT IV PRESENT ON THE LEFT WRIST #20G SALINE LOCK, PATENT, INTACT AND FLUSHES WELL W/ NO S&SX OF INFILTRATION @SITE NOTED. SAFETY MEASURE IS IN PLACE. BED IN LOWEST AND LOCKED POSITION. SIDE RAILS UP X 4. BEDSIDE TABLE AND CALL LIGHT IS EASY REACH. BED ALARM IS ON. WILL CONTINUE TO MONITOR PT ACCORDINGLY.
[2022-09-04] MEDS: ENOXAPARIN SODIUM 40 MG/0.4 ML DISP.SYRIN SQ SCH (19:52)
[2022-09-04 20:00] VITALS: BP 123/70; TEMP 98.2; O2SAT 98
--- NOTE | 2022-09-04 21:00 | NUR ---
PT IS ALWAYS GETTING OUT OF BED AND NON-COMPLIANT. PT IS PULLING OUT CALL LIGHT PLUG, IV PUMP PLUG. PT PULLED IV LINE TODAY AND TRIED TO PULLED OUT THE NEW IV LINE AGAIN DESPITE THE REORIENTATION TO THE UNIT AND EXPLANATION OF THE PLAN OF CARE. MD IS INFORMED AND ORDERED RESTRAINT FOR THE PT, ORDERED RECEIVED AND CARRIED OUT. CHARGE NURSE IS INFORMED AND MADE AWARE.
[2022-09-05] MEDS: ZOSYN IVPB 3.375 G in IV D5W 50ml IV SCH ×4 (01:41→20:00)
[2022-09-05] MEDS: VANCOMYCIN HCL 0.75 GM in IV D5W 250 ML IV SCH ×3 (02:11→13:50)
[2022-09-05 06:01] LABS: BASOPHILS % (AUTO) 0.4 % (0.0-2.0); EOSINOPHILS % (AUTO) 1.5 % (0.0-6.0); HEMATOCRIT 32 % (39-51); HEMOGLOBIN 10.8 g/dL (13.5-17.5); LYMPHOCYTES # (AUTO) 1.7 K/uL (0.8-4.8); LYMPHOCYTES % (AUTO) 18.7 % (20.0-44.0); MEAN CORPUSCULAR HGB CONC 34 g/dl (31.0-36.0); MEAN CORPUSCULAR VOLUME 88 fL (80-96); MONOCYTES # (AUTO) 0.6 K/uL (0.1-1.30); MONOCYTES % (AUTO) 6.9 % (2.0-12.0); NEUTROPHILS # (AUTO) 6.6 K/uL (1.8-8.9); NEUTROPHILS % (AUTO) 72.5 % (43.0-81.0); PLATELET COUNT (AUTO) 264 K/uL (150-450); RED BLOOD CELL COUNT(AUTO) 3.62 MIL/uL (4.5-6.0); WHITE BLOOD COUNT (AUTO) 9.1 K/uL (4.3-11.0)
[2022-09-05 06:15] LABS: CALCIUM, SERUM 9.2 mg/dL (8.5-10.1); CREATININE 0.8 mg/dL (0.6-1.3); PHOSPHORUS 3.4 mg/dL (2.5-4.9); POTASSIUM 3.7 mmol/L (3.5-5.1)
--- NOTE | 2022-09-05 06:38 | NUR ---
RN CLOSING NOTE PT AWAKE AND RESTING COMFORTABLY IN BED. PT IS A/O X 1-2. PT IS STABLE IN RA W/ NO S&SX OF RESPIRATORY DISTRESS @ THIS TIME. PT IV PRESENT ON THE LEFT WRIST #20G SALINE LOCK, PATENT, INTACT AND FLUSHES WELL W. NO S&SX OF INFILTRATION @SITE NOTED. SAFETY MEASURE IS IN PLACE. BED IN LOWEST AND LOCKED POSITION. SIDE RAILS UP X 4. BEDSIDE TABLE AND CALL LIGHT IS EASY REACH. BED ALARM IS ON. WILL ENDORSE PT TO THE NEXT SHIFT FOR ROBERT.
[2022-09-05] MEDS: INSULIN REGULAR, HUMAN 100 UNIT/ML 3 ML VIAL SQ PRN ×4 (06:51→21:31)
--- NOTE | 2022-09-05 07:10 | NUR ---
MS RN OPENING NOTE RECEIVED PATIENT IN BED, AWAKE. A/O X 1-2, PALESTINIAN SPEAKING & CONFUSED. NO SIGNS OF ACUTE DISTRESS NOTED. ON ROOM AIR, TOLERATING WELL. NO SOB, BREATHING EVEN AND UNLABORED.WITH IV ACCESS ON LEFT WRIST #20G SALINE LOCKED; PATENT, INTACT AND FLUSHES WELL. PATIENT DENIES ANY PAIN AT THIS TIME. PATIENT IS WITH BILATERAL WRIST RESTRAINTS. SAFETY MEASURES IS IN PLACE. BED IN LOWEST AND LOCKED POSITION. SIDE RAILS UP X 4. BEDSIDE TABLE AND CALL LIGHT IS WITHIN EASY REACH. BED ALARM IS ON. WILL CONTINUE WITH PLAN OF CARE.
[2022-09-05] MEDS: PANTOPRAZOLE 40 MG TABLET.DR PO SCH (07:25)
[2022-09-05] MEDS: BLOOD SUGAR DIAGNOSTIC 1 EACH STRIP IN SCH ×4 (07:25→21:29)
[2022-09-05] MEDS: THIAMINE HCL 100 MG TABLET PO SCH (08:10)
[2022-09-05] MEDS: OLANZAPINE 2.5 MG TABLET PO SCH ×2 (08:10→21:14)
[2022-09-05 08:38] VITALS: BP 135/66; TEMP 98.1; O2SAT 99
[2022-09-05 16:24] VITALS: BP 136/58; TEMP 98.1; O2SAT 98
--- NOTE | 2022-09-05 18:40 | NUR ---
MS RN CLOSING NOTES PATIENT IN BED, AWAKE. A/O X 1-2, YEMENI SPEAKING & CONFUSED. NO SIGNS OF ACUTE DISTRESS NOTED. ON ROOM AIR, TOLERATED WELL. NO SOB, BREATHING EVEN AND UNLABORED.WITH IV ACCESS ON LEFT WRIST #20G SALINE LOCKED; PATENT, INTACT AND FLUSHES WELL. PATIENT IS WITH BILATERAL WRIST RESTRAINTS-CHECKED Q2H FOR ASSESSMENT. ALL DUE MEDS GIVEN. ALL NURSING NEEDS ATTENDED. SAFETY MEASURES IS IMPLEMENTED. BED IN LOWEST AND LOCKED POSITION. SIDE RAILS UP X 4. BEDSIDE TABLE AND CALL LIGHT IS WITHIN EASY REACH. BED ALARM IS ON. WILL ENDORSE TO ARTIFICIAL BREEDING DISTRIBUTOR NURSE FOR CONTINUITY OF CARE.
--- NOTE | 2022-09-05 20:00 | NUR ---
ALERT AND AWAKE, CONFUSED, BULGARIAN SPEAKING ONLY, DOES NOT FOLLOW COMMANDS. ROOM AIR, NOT IN APPARENT DISTRESS. BILATERAL WRIST RESTRAINTS, FOLLOWING MONITORING PROTOCOL. RIGHT HAND WITH BULKY DRESSING, DRIED DRAINAGE. REPOSITIONED FOR COMFORT, KEPT SAFE, WILL CONTINUE TO MONITOR.
[2022-09-05] MEDS: ENOXAPARIN SODIUM 40 MG/0.4 ML DISP.SYRIN SQ SCH (20:08)
[2022-09-05 20:47] VITALS: BP 134/70; TEMP 98.2; O2SAT 97
[2022-09-06] MEDS: ZOSYN IVPB 3.375 G in IV D5W 50ml IV SCH ×4 (01:07→19:46)
[2022-09-06] MEDS: VANCOMYCIN HCL 0.75 GM in IV D5W 250 ML IV SCH ×2 (01:46→14:59)
--- NOTE | 2022-09-06 05:27 | NUR ---
ALERT/AWAKE, CONFUSED, RESTLESS AT TIMES, ROOM AIR, NO COMPLAIN OF PAIN. BILATERAL WRIST RESTRAINTS RENEWED. TOOK ALL PM MEDS, ZOSYN AND VANCOMYCIN, RIGHT HAND DRESSING CHANGED, WOUND CARE CONSULT PENDING, NEXT VANCO TROUGH 09/06/22 AT 1300. NEW PERIPHERAL LINE STARTED, ANNE #20. ACCUCHECK AND SLIDING SCALE, IV ANTIBIOTICS. KEPT SAFE, ALL NEEDS ATTENDED, WILL CONTINUE TO MONITOR.
[2022-09-06] MEDS: INSULIN REGULAR, HUMAN 100 UNIT/ML 3 ML VIAL SQ PRN ×3 (06:36→16:52)
[2022-09-06] MEDS: BLOOD SUGAR DIAGNOSTIC 1 EACH STRIP IN SCH ×4 (06:36→21:29)
[2022-09-06 07:00] VITALS: BP 125/67; TEMP 98.5; O2SAT 96
[2022-09-06 07:21] LABS: BASOPHILS % (AUTO) 0.4 % (0.0-2.0); EOSINOPHILS % (AUTO) 1.3 % (0.0-6.0); HEMATOCRIT 35 % (39-51); HEMOGLOBIN 11.5 g/dL (13.5-17.5); LYMPHOCYTES # (AUTO) 1.7 K/uL (0.8-4.8); LYMPHOCYTES % (AUTO) 17.7 % (20.0-44.0); MEAN CORPUSCULAR HGB CONC 33 g/dl (31.0-36.0); MEAN CORPUSCULAR VOLUME 90 fL (80-96); MONOCYTES # (AUTO) 0.5 K/uL (0.1-1.30); MONOCYTES % (AUTO) 5.3 % (2.0-12.0); NEUTROPHILS # (AUTO) 7.1 K/uL (1.8-8.9); NEUTROPHILS % (AUTO) 75.3 % (43.0-81.0); PLATELET COUNT (AUTO) 294 K/uL (150-450); RED BLOOD CELL COUNT(AUTO) 3.88 MIL/uL (4.5-6.0); WHITE BLOOD COUNT (AUTO) 9.4 K/uL (4.3-11.0)
[2022-09-06 08:00] LABS: CALCIUM, SERUM 9.3 mg/dL (8.5-10.1); CREATININE 0.7 mg/dL (0.6-1.3); MAGNESIUM 2.2 mg/dL (1.8-2.4); PHOSPHORUS 3.8 mg/dL (2.5-4.9); POTASSIUM 3.8 mmol/L (3.5-5.1)
--- NOTE | 2022-09-06 08:12 | NUR ---
RN NOTE RECEIVED PT. IN BED, ASLEEP, EASILY AROUSED, RESPONDS TO TACTILE STIMULI . ON ROOM AIR, TOLERATING WELL. NO SIGNS OF ANY FORM OF DISTRESS NOTED.BILATERAL WRIST RESTRAINTS NOTED, NO SWELLING OR BLEEDING NOTED. RIGHT HAND DRESSING NOTED, DRY AND INTACT. SAFETY MEASURES ARE IN PLACED: BED IN LOWEST AND LOCKED POSITION; SIDE RAILS UP X 2; CALL LIGHT AND TABLE ARE IN REACH. WILL CONTINUE TO MONITOR.
[2022-09-06] MEDS: PANTOPRAZOLE 40 MG TABLET.DR PO SCH (08:35)
[2022-09-06] MEDS: THIAMINE HCL 100 MG TABLET PO SCH (08:37)
[2022-09-06] MEDS: OLANZAPINE 2.5 MG TABLET PO SCH ×2 (08:37→21:19)
[2022-09-06 16:00] VITALS: BP 108/61; TEMP 98.5; O2SAT 96
--- NOTE | 2022-09-06 18:37 | NUR ---
RN CLOSING NOTES PT AWAKE IN BED A/OX0,CONFUSED. ON ROOM AIR, TOLERATING WELL. NO SIGNS OF ANY FORM OF DISTRESS NOTED.BILATERAL WRIST RESTRAINTS NOTED, NO SWELLING OR BLEEDING NOTED. DRESSING CHANGED AT RIGHT HAND, DRY AND INTACT. ALL NEEDS ATTENDED, DUE MEDS GIVEN. KEPT PATIENT CLEAN AND COMFORTABLE. SAFETY MEASURES ARE IN PLACED: BED IN LOWEST AND LOCKED POSITION; SIDE RAILS UP X 2; CALL LIGHT AND TABLE ARE IN REACH. ENDORSE TO INCOMING SHIFT
--- NOTE | 2022-09-06 19:33 | NUR ---
MS RN NOTES RECEIVED PT IN BED, A/O X0, WITH BILATERAL SOFT WRIST RESTRAINS. IV ACCESS ON ANNE 20G, SL, INTACT AND FLUSHING WELL. PT STABLE ON ROOM AIR, NO S/S OF SOB NOTED. SAFETY PRECAUTIONS IN PLACED, BED AT LOWEST AND LOCKED POSITION, SIDE RAILS UP X3, CALL LIGHT AND TABLE WITHIN REACH. WILL CONTINUE TO MONITOR.
[2022-09-06] MEDS: ENOXAPARIN SODIUM 40 MG/0.4 ML DISP.SYRIN SQ SCH (19:45)
[2022-09-06 20:00] VITALS: BP 121/63; TEMP 98.1; O2SAT 98
[2022-09-07] MEDS: ZOSYN IVPB 3.375 G in IV D5W 50ml IV SCH ×4 (01:01→19:37)
[2022-09-07] MEDS: VANCOMYCIN HCL 0.75 GM in IV D5W 250 ML IV SCH ×2 (01:35→14:43)
[2022-09-07 06:02] LABS: BASOPHILS % (AUTO) 0.4 % (0.0-2.0); HEMATOCRIT 33 % (39-51); LYMPHOCYTES % (AUTO) 20.7 % (20.0-44.0); MEAN CORPUSCULAR HGB CONC 34 g/dl (31.0-36.0); MEAN CORPUSCULAR VOLUME 89 fL (80-96); MONOCYTES # (AUTO) 0.5 K/uL (0.1-1.30); MONOCYTES % (AUTO) 4.9 % (2.0-12.0); NEUTROPHILS # (AUTO) 7.1 K/uL (1.8-8.9); PLATELET COUNT (AUTO) 302 K/uL (150-450); RED BLOOD CELL COUNT(AUTO) 3.66 MIL/uL (4.5-6.0); WHITE BLOOD COUNT (AUTO) 9.8 K/uL (4.3-11.0)
[2022-09-07 06:14] LABS: CARBON DIOXIDE 23 mmol/L (21-32); CHLORIDE 102 mmol/L (98-107); CREATININE 0.9 mg/dL (0.6-1.3); GLUCOSE 135 mg/dL (74-106); MAGNESIUM 2.1 mg/dL (1.8-2.4); PHOSPHORUS 3.5 mg/dL (2.5-4.9); POTASSIUM 3.7 mmol/L (3.5-5.1); SODIUM SERUM 137 mmol/L (136-145); UREA NITROGEN, BLOOD 10 mg/dL (7-18)
[2022-09-07] MEDS: BLOOD SUGAR DIAGNOSTIC 1 EACH STRIP IN SCH ×4 (06:31→23:22)
--- NOTE | 2022-09-07 06:35 | NUR ---
RECEIVED PT IN BED, A/O X0, REACTS TO LIGHT PAIN STIMULI, WITH BILATERAL SOFT WRIST RESTRAINS. IV ACCESS ON NANE 20G, SL, INTACT AND FLUSHING WELL. PT STABLE ON ROOM AIR, NO S/S OF SOB NOTED. KEPT CLEAN AND DRY, TURNED AND REPOSITIONED, CHECKED FOR PULSE AND SKIN CONDITION TO RESTRAINED EXTREMITIES ACCORDINGLY. NO HYPO/HYPERGLYCEMIC EPISODES THIS SHIFT. ALL DUE MEDS GIVEN, ALL NEEDS ATTENDED. SAFETY PRECAUTIONS IN PLACED, BED AT LOWEST AND LOCKED POSITION, SIDE RAILS UP X3, CALL LIGHT AND TABLE WITHIN REACH. WILL ENDORSE PT TO ONCOMING NURSE FOR ROBERT.
--- NOTE | 2022-09-07 07:50 | NUR ---
RN NOTES PT AWAKE IN BED A/OX0,CONFUSED. ON ROOM AIR, TOLERATING WELL. NO SIGNS OF ANY FORM OF DISTRESS NOTED.BILATERAL WRIST RESTRAINTS NOTED, NO SWELLING OR BLEEDING NOTED. RIGHT HAND DRESSING NOTED. SAFETY MEASURES ARE IN PLACED: BED IN LOWEST AND LOCKED POSITION; SIDE RAILS UP X 2; CALL LIGHT AND TABLE ARE IN REACH. WILL CONTINUE TO MONITOR.
[2022-09-07] MEDS: PANTOPRAZOLE 40 MG TABLET.DR PO SCH (07:57)
[2022-09-07 08:00] VITALS: BP 107/57; TEMP 98.1; O2SAT 96
[2022-09-07 08:48] LABS: LYMPHOCYTES % (MANUAL) 26 % (16-48); MONOCYTES % (MANUAL) 8 % (0-11.0); NEUTROPHILS % (MANUAL) 66 (42-76)
[2022-09-07] MEDS: OLANZAPINE 2.5 MG TABLET PO SCH ×2 (09:06→22:00)
[2022-09-07] MEDS: THIAMINE HCL 100 MG TABLET PO SCH (09:06)
[2022-09-07] MEDS ORDERED: BUPIVACAINE 0.5 % PF 150 MG/30 ML VIAL ONE (11:28)
[2022-09-07] MEDS ORDERED: POLYMYXIN B SULFATE 0 UNITS ONE (11:28)
[2022-09-07] MEDS ORDERED: LIDOCAINE 1% INJ 50 ML MDV IJ ONE (11:28)
--- NOTE | 2022-09-07 13:00 | NUR ---
RN NOTE PATIENT WENT TO OR FOR RIGHT HAND SURGERY, WILL MONITOR.
--- NOTE | 2022-09-07 14:00 | NUR ---
RN NOTE SURGERY WAS POSTPONE DUE TO POSSIBLE ASPIRATION. PLAN FOR TUESDAY.
[2022-09-07 16:00] VITALS: BP 140/70; TEMP 100.1; O2SAT 97
--- NOTE | 2022-09-07 18:39 | NUR ---
RN CLOSING NOTES PT IN BED, ASLEEP, EASILY AROUSED, RESPONDS TO TACTILE STIMULI . ON ROOM AIR, TOLERATING WELL. NO SIGNS OF ANY FORM OF DISTRESS NOTED.BILATERAL WRIST RESTRAINTS NOTED, NO SWELLING OR BLEEDING NOTED. DRESSING CHANGED AT RIGHT HAND, DRY AND INTACT. ALL NEEDS ATTENDED, DUE MEDS GIVEN. KEPT PATIENT CLEAN AND COMFORTABLE. PATIENT WILL STILL BE ON NPO AT THIS TIME FOR ASPIRATION PRECAUTIONS. SAFETY MEASURES ARE IN PLACED: BED IN LOWEST AND LOCKED POSITION; SIDE RAILS UP X 2; CALL LIGHT AND TABLE ARE IN REACH. ENDORSE TO INCOMING SHIFT.
--- NOTE | 2022-09-07 19:20 | NUR ---
RN Opening Note Pt sleeping in bed, easily aroused A/O*1, confused, Georgian speaker. No s/s of pain noted at this time. IV site ANNE 20G, SL. On RA, breathing even, unlabored, no distress or SOB noted. Pt is on bilateral wrist soft restraints, intact CMS and no skin issue on the wrist. All safety measures in place, bed alarm on, bed in low and locked position, call lights and table in easy reach, and side rails up*2. Will continue monitoring. Addendum: 09/07/22 at 2004 by RENEE PORTILLO RN Correction: NOT easily aroused, lethargic.
[2022-09-07] MEDS: ENOXAPARIN SODIUM 40 MG/0.4 ML DISP.SYRIN SQ SCH (19:42)
[2022-09-07 20:00] VITALS: BP 117/78; TEMP 98.3; O2SAT 96
--- NOTE | 2022-09-07 20:10 | NUR ---
RN Note Pt respond to pain stimulus, no eye opening, GCS7. Will continue monitoring.
[2022-09-07] MEDS: INSULIN REGULAR, HUMAN 100 UNIT/ML 3 ML VIAL SQ PRN (23:23)
[2022-09-08] MEDS: ZOSYN IVPB 3.375 G in IV D5W 50ml IV SCH ×4 (02:06→19:58)
[2022-09-08] MEDS: VANCOMYCIN HCL 0.75 GM in IV D5W 250 ML IV SCH ×2 (02:36→14:04)
[2022-09-08 06:57] LABS: CALCIUM, SERUM 9.2 mg/dL (8.5-10.1); CARBON DIOXIDE 23 mmol/L (21-32); CHLORIDE 101 mmol/L (98-107); GLUCOSE 140 mg/dL (74-106); POTASSIUM 3.6 mmol/L (3.5-5.1); SODIUM SERUM 133 mmol/L (136-145); UREA NITROGEN, BLOOD 11 mg/dL (7-18)
[2022-09-08] MEDS: BLOOD SUGAR DIAGNOSTIC 1 EACH STRIP IN SCH ×4 (07:00→21:47)
[2022-09-08] MEDS: INSULIN REGULAR, HUMAN 100 UNIT/ML 3 ML VIAL SQ PRN ×3 (07:00→21:48)
--- NOTE | 2022-09-08 07:30 | NUR ---
MS RN OPENING NOTES Received Pt sleeping in bed, easily aroused by touch. A/O*1, confused, Chinese speaker. No s/s of pain noted at this time. IV site ANNE 20G, SL. On RA, breathing even, unlabored, no distress or SOB noted. Pt is on bilateral wrist soft restraints, intact CMS and no skin issue on the wrist. Provided frequent orientation and ADL needs. Scheduled medication administered. Wound care implemented. Pt turned and repositioned per protocol. All safety measures in place and maintained, bed alarm on, bed in low and locked position, call lights and table in easy reach, and side rails up*3. Will administer all scheduled meds and continue to monitor pt.
--- NOTE | 2022-09-08 07:34 | NUR ---
RN Closing Note Pt sleeping in bed, easily aroused by touch. A/O*1, confused, Djib[place]ian speaker. No s/s of pain noted at this time. IV site ANNE 20G, SL. On RA, breathing even, unlabored, no distress or SOB noted. Pt is on bilateral wrist soft restraints, intact CMS and no skin issue on the wrist. Provided frequent orientation and ADL needs. Scheduled medication administered. Wound care implemented. Pt turned and repositioned per protocol. All safety measures in place and maintained, bed alarm on, bed in low and locked position, call lights and table in easy reach, and side rails up*3. Will endorse to day shift.
[2022-09-08 07:36] VITALS: BP 144/72; TEMP 96.4
[2022-09-08 08:00] VITALS: BP 106/59; TEMP 98.1; O2SAT 97
[2022-09-08] MEDS: OLANZAPINE 2.5 MG TABLET PO SCH ×3 (09:11→22:03)
[2022-09-08] MEDS: PANTOPRAZOLE 40 MG TABLET.DR PO SCH (09:11)
[2022-09-08] MEDS: THIAMINE HCL 100 MG TABLET PO SCH (09:11)
--- NOTE | 2022-09-08 14:01 | NUR ---
Unable to assess. Pt is discharged.
[2022-09-08 16:00] VITALS: BP 114/61; TEMP 97.6; O2SAT 98
--- NOTE | 2022-09-08 18:31 | NUR ---
RN NOTES PT BLOOD SUGAR IS 189 TAKEN AT 1730. NONADMINISTERED COVERAGE BACAUSE PT JUST FINISHED A WHOLE CUP OF APPLE SAUCE AROUND 45 MINS PRIOR. PT HAS BEEN NPO THE WHOLE DAY, AND NPO AGAIN AFTER MIDNIGHT FOR SURGERY TOMORROW. PT HAS NORMAL BLOOD SUGAR AT NOON.
--- NOTE | 2022-09-08 18:35 | NUR ---
MS RN CLOSING NOTES Pt resting in bed, easily aroused by touch. A/O*1, confused, Hebrew speaker. No s/s of pain noted at this time. IV site ANNE 20G, SL. On RA, breathing even, unlabored, no distress or SOB noted. Pt is on bilateral wrist soft restraints, intact CMS and no skin issue on the wrist. Renew at 1805. Provided frequent orientation and ADL needs. All Scheduled medication administered. Wound care implemented. Pt turned and repositioned per protocol. All safety measures in place and maintained, bed alarm on, bed in low and locked position, call lights and table in easy reach, and side rails up*3. Will endorse to next shift. NPO by midnight. All consents signed for surgery tomorrow.
[2022-09-08] MEDS: ENOXAPARIN SODIUM 40 MG/0.4 ML DISP.SYRIN SQ SCH (19:30)
--- NOTE | 2022-09-08 19:30 | NUR ---
MS RN OPENING NOTES - RECEIVED PATIENT AWAKE, HOB IN SEMI-KEATING'S. A/O X1, TURKISH SPEAKING. BREATHING EVEN AND NON-LABORED ON ROOM AIR. NO C/O PAIN AT THIS TIME. HAS LEFT FOREARM IV ACCESS #20G AND SALINE LOCKED. NO S/S OF INFILTRATION NOTED. HAS BILATERAL SOFT WRIST RESTRAINTS. SAFETY PRECAUTIONS IN PLACE: BED LOCKED AND IN LOW POSITION, SIDE RAILS UP X3, CALL LIGHT WITHIN REACH. WILL CONTINUE PLAN OF CARE.
[2022-09-08 20:00] VITALS: BP 106/59; TEMP 98.1; O2SAT 97
--- NOTE | 2022-09-08 20:11 | NUR ---
HOLD LOVENOX D/T RIGHT HAND SX TOMORROW. HOSPITALIST AWARE.
--- NOTE | 2022-09-08 22:30 | NUR ---
OFFERED ZYPREXA TO PATIENT, EXPLAINED WHAT IS THE MEDICINE FOR. PATIENT KEPT REFUSING. EXPLAINED RISKS AND BENEFITS. STILL REFUSED.
[2022-09-09] MEDS: ZOSYN IVPB 3.375 G in IV D5W 50ml IV SCH ×4 (01:21→19:57)
[2022-09-09] MEDS: VANCOMYCIN HCL 0.75 GM in IV D5W 250 ML IV SCH (02:28)
[2022-09-09 06:11] LABS: CALCIUM, SERUM 9.1 mg/dL (8.5-10.1); CREATININE 0.9 mg/dL (0.6-1.3); POTASSIUM 3.8 mmol/L (3.5-5.1)
[2022-09-09] MEDS: BLOOD SUGAR DIAGNOSTIC 1 EACH STRIP IN SCH ×4 (06:35→22:20)
[2022-09-09] MEDS: INSULIN REGULAR, HUMAN 100 UNIT/ML 3 ML VIAL SQ PRN ×3 (06:35→22:21)
--- NOTE | 2022-09-09 06:47 | NUR ---
MS RN CLOSING NOTES - PATIENT RESTING IN ROOM, ABLE TO VERBALIZED NEEDS. CONFUSED AND NEEDS FREQUENT REORIENTATION. NO RESPIRATORY OR CARDIAC DISTRESS THROUGHOUT THE NIGHT. DENIES PAIN. RIGHT AND LEFT FOREARM IV ACCESS INTACT, PATENT AND FLUSHING. WOUND DRESSING C/D/I. BILATERAL SOFT WRIST RESTRAINTS IN PLACE. CIRCULATION AND SKIN COLOR WNL. KEPT NPO AFTER MIDNIGHT. ALL DUE MEDS GIVEN AND NEEDS ATTENDED. SAFETY PRECAUTIONS MAINTAINED. WILL ENDORSE TO NEXT SHIFT FOR ROBERT.
--- NOTE | 2022-09-09 07:25 | NUR ---
ms rn received on bed, confused, bilateral soft wrist restraints on, patient on room air w/ adequate saturation, no s/s of pain at this time, npo for egan arm i and d today, repositioned for comfort. will monitor patient,all needs attended.
[2022-09-09] MEDS ORDERED: BUPIVACAINE 0.25% 75 MG/30 ML VIAL ONE (07:27)
[2022-09-09] MEDS ORDERED: LIDOCAINE 1% INJ 50 ML MDV IJ ONE (07:27)
[2022-09-09] MEDS: PANTOPRAZOLE 40 MG TABLET.DR PO SCH (07:30)
[2022-09-09] MEDS ORDERED: SEVOFLURANE 250 ML BOTTLE IH ONE (07:36)
[2022-09-09 08:05] VITALS: BP 134/61; TEMP 98; O2SAT 95
[2022-09-09] MEDS ORDERED: MIDAZOLAM HCL 2 MG/2ML VIAL ONE (08:21)
[2022-09-09] MEDS ORDERED: FENTANYL PF 100MCG/2ML AMPUL ONE (08:21)
[2022-09-09] MEDS ORDERED: BUPIVACAINE MPF 0.5% W/EPI INJ 30 ML VIAL ONE ×2 (08:21→08:32)
[2022-09-09 08:24] LABS: IRON, SERUM 28 ug/dl (50-175); TOTAL IRON BINDING CAPACITY 170 ug/dl (250-450)
[2022-09-09 08:35] LABS: FERRITIN 252 ng/mL (8-388)
[2022-09-09] MEDS: OLANZAPINE 2.5 MG TABLET PO SCH ×2 (11:15→22:21)
[2022-09-09] MEDS: THIAMINE HCL 100 MG TABLET PO SCH (11:16)
--- NOTE | 2022-09-09 11:30 | NUR ---
ms rn patient went down for procedure, all needs attended.
[2022-09-09 12:00] VITALS: BP 137/59; TEMP 97.6; O2SAT 100
--- NOTE | 2022-09-09 13:00 | NUR ---
ms rn patient came back from surgery, right arm dressing w/ collin wrap, dry and intact, denies pain at this time, patient has VSS, on iv antibiotic.will monitor patient.
[2022-09-09 15:58] VITALS: BP 127/73; TEMP 97.9; O2SAT 95
[2022-09-09] MEDS: VANCOMYCIN 500 MG in IV D5W 100ml IV SCH (15:58)
--- NOTE | 2022-09-09 19:30 | NUR ---
MS RN OPENING NOTES - RECEIVED PATIENT AWAKE IN BED. A/O X1, CONFUSED. BREATHING EVEN AND NON-LABORED ON ROOM AIR. RESTLESS AND TRYING TO GET OUT OF BED. BILATERAL SOFT WRIST RESTRAINTS IN PLACE. HAS LEFT FOREARM IV ACCESS #20G AND SALINE LOCKED. NO S/S OF INFILTRATION NOTED. RIGHT HAND SURGICAL WOUND DRESSING INTACT, MODERATE DRAINAGE NOTED. SAFETY PRECAUTIONS IN PLACE: BED LOCKED AND IN LOW POSITION, SIDE RAILS UP X3, CALL LIGHT WITHIN REACH. WILL CONTINUE PLAN OF CARE.
[2022-09-09] MEDS: ENOXAPARIN SODIUM 40 MG/0.4 ML DISP.SYRIN SQ SCH (19:58)
[2022-09-09 20:00] VITALS: BP 134/74; TEMP 98; O2SAT 97
--- NOTE | 2022-09-09 20:08 | NUR ---
PATIENT IS RESTLESS AND FACIAL GRIMACING. ADMINISTERED PRN MORPHINE SULFATE 2MG TO MANAGE POST-OP PAIN OF THE RIGHT HAND. WILL CONTINUE TO MONITOR.
[2022-09-10] MEDS: VANCOMYCIN 500 MG in IV D5W 100ml IV SCH ×2 (02:02→14:10)
[2022-09-10] MEDS: ZOSYN IVPB 3.375 G in IV D5W 50ml IV SCH ×2 (03:06→08:21)
[2022-09-10 05:46] LABS: BASOPHILS % (AUTO) 0.4 % (0.0-2.0); EOSINOPHILS % (AUTO) 0.2 % (0.0-6.0); HEMATOCRIT 34 % (39-51); HEMOGLOBIN 11.1 g/dL (13.5-17.5); LYMPHOCYTES # (AUTO) 1.3 K/uL (0.8-4.8); LYMPHOCYTES % (AUTO) 10.5 % (20.0-44.0); MEAN CORPUSCULAR HGB CONC 33 g/dl (31.0-36.0); MEAN CORPUSCULAR VOLUME 89 fL (80-96); MONOCYTES # (AUTO) 0.5 K/uL (0.1-1.30); MONOCYTES % (AUTO) 4.2 % (2.0-12.0); NEUTROPHILS # (AUTO) 10.3 K/uL (1.8-8.9); NEUTROPHILS % (AUTO) 84.7 % (43.0-81.0); PLATELET COUNT (AUTO) 321 K/uL (150-450); RED BLOOD CELL COUNT(AUTO) 3.83 MIL/uL (4.5-6.0); WHITE BLOOD COUNT (AUTO) 12.1 K/uL (4.3-11.0)
[2022-09-10 06:02] LABS: CALCIUM, SERUM 9.3 mg/dL (8.5-10.1); POTASSIUM 3.8 mmol/L (3.5-5.1)
[2022-09-10 06:03] LABS: CREATININE 0.9 mg/dL (0.6-1.3); MAGNESIUM 2.1 mg/dL (1.8-2.4); PHOSPHORUS 3.5 mg/dL (2.5-4.9)
[2022-09-10] MEDS: INSULIN REGULAR, HUMAN 100 UNIT/ML 3 ML VIAL SQ PRN (06:42)
[2022-09-10] MEDS: BLOOD SUGAR DIAGNOSTIC 1 EACH STRIP IN SCH ×2 (06:42→13:47)
--- NOTE | 2022-09-10 07:04 | NUR ---
MS RN CLOSING NOTES - PATIENT SLEEPING, EASY TO AROUSE. FREQUENT RE-ORIENTATION NEEDED. NO SOB OR ON ROOM AIR. LEFT UPPER ARM IV ACCESS INTACT, PATENT AND FLUSHING. RIGHT HAND WOUND CARE RENDERED, SANGUINEOUS DRAINAGE NOTED. PAIN MANAGEMENT PER MD ORDER. ALL DUE MEDS GIVEN AND NEEDS ATTENDED. SAFETY PRECAUTIONS MAINTAINED. WILL ENDORSE TO AM RN FOR ROBERT.
--- NOTE | 2022-09-10 07:15 | NUR ---
ms rn received on bed, awake,alert,oriented x1-2,not in any form of distress, respirations even and unlabored,no sob noted, bilateral soft wrist restraints on, s/p i and d of right hand cellulitis yesterday w/ dressing dry and intact.denies pain at this time, on room air w/ adequate saturation, repositioned for comfort, will monitor patient.
[2022-09-10] MEDS: OLANZAPINE 2.5 MG TABLET PO SCH (08:20)
[2022-09-10] MEDS: PANTOPRAZOLE 40 MG TABLET.DR PO SCH (08:20)
[2022-09-10] MEDS: THIAMINE HCL 100 MG TABLET PO SCH (08:20)
[2022-09-10 08:31] VITALS: BP 130/57; TEMP 97.5; O2SAT 100
--- NOTE | 2022-09-10 10:00 | NUR ---
ms rn was seen by dr. Horn, changed dressing, all needs attended.
[2022-09-10] MEDS ORDERED: GLUCERNA SHAKE 237 ML CAN PO SCH (12:00)
[2022-09-10] MEDS ORDERED: CLIN300C12 PO (12:11)
--- NOTE | 2022-09-10 16:30 | NUR ---
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
== END 2022-09-10 16:32 | DRG 580 ==
LOC: ER 13:20 → MED 17:07
PROVIDERS: ADMIT Nurse Practitioner Family; ATTEND Nurse Practitioner Acute Care
PROC: 0JBJ0ZZ Excision of Right Hand Subcutaneous Tissue and Fascia, Open Approach (ICD-10-PCS; principal; 2022-09-09)
DX: L03.113 Cellulitis of right upper limb (principal); E44.0 Moderate protein-calorie malnutrition; F03.918 Unspecified dementia, unspecified severity, with other behavioral disturbance; L02.511 Cutaneous abscess of right hand; F03.94 Unspecified dementia, unspecified severity, with anxiety; I87.312 Chronic venous hypertension (idiopathic) with ulcer of left lower extremity; L97.829 Non-pressure chronic ulcer of other part of left lower leg with unspecified severity; L98.498 Non-pressure chronic ulcer of skin of other sites with other specified severity; E11.65 Type 2 diabetes mellitus with hyperglycemia; D64.9 Anemia, unspecified; E88.09 Other disorders of plasma-protein metabolism, not elsewhere classified; F25.9 Schizoaffective disorder, unspecified; E11.42 Type 2 diabetes mellitus with diabetic polyneuropathy; F41.9 Anxiety disorder, unspecified; I35.0 Nonrheumatic aortic (valve) stenosis; B95.62 Methicillin resistant Staphylococcus aureus infection as the cause of diseases classified elsewhere; Z68.20 Body mass index [BMI] 20.0-20.9, adult
CPT/HCPCS: 36415; 70450-TC; 71045-TC; 73130-TC; 80048-TC; 80061-TC; 80076-TC; 80202-TC; 82728-TC; 82962-TC; 83540-TC; 83735-TC; 84100-TC; 85025-TC; 85652-TC; 85730-TC; 86140-TC; 86803; 86850-TC; 87040-TC; 87081-TC; 87102-TC; 87116; 87206; 87806; 92526; 92611-TC; 93307-TC; 97110-TC; 97112-TC; 97116-TC; 97530-TC; 97535-TC; A4223; A6253; A6402; A6403; A6407; G0378; J0690; J1650; J1815; J2250; J2270; J2405; J2543; J2704; J3010; J3370; J3490; J7030; J7050; J7060

== ENCOUNTER 2023-03-09 20:48 | Inpatient (IN) | payer MEDICARE, OTHER ==
[~2023-03-09] VITALS: Ht 152.4 cm; Wt 61.2 kg
[~2023-03-09 20:48] MED LIST: ACET-868 PO; CLIN300C12 PO; MAG-151 PO; MAGN400O6 PO; OLAN2.5T3 PO; OLAN7.5T3 PO; THIA100T88 PO
[2023-03-09] MEDS ORDERED: IV NS 0.9% 1,000 ML BAG IV ONE (21:30)
[2023-03-09 21:34] LABS: BASOPHILS % (AUTO) 0.1 % (0.0-2.0); EOSINOPHILS % (AUTO) 0.1 % (0.0-6.0); HEMATOCRIT 34 % (39-51); HEMOGLOBIN 11.2 g/dL (13.5-17.5); LYMPHOCYTES # (AUTO) 1.5 K/uL (0.8-4.8); LYMPHOCYTES % (AUTO) 10.7 % (20.0-44.0); MEAN CORPUSCULAR HEMOGLOBIN 29 PG (26.0-33.0); MEAN CORPUSCULAR HGB CONC 33 g/dl (31.0-36.0); MEAN CORPUSCULAR VOLUME 87 fL (80-96); MONOCYTES # (AUTO) 0.5 K/uL (0.1-1.30); MONOCYTES % (AUTO) 3.3 % (2.0-12.0); NEUTROPHILS # (AUTO) 12.3 K/uL (1.8-8.9); NEUTROPHILS % (AUTO) 85.8 % (43.0-81.0); PLATELET COUNT (AUTO) 207 K/uL (150-450); RED BLOOD CELL COUNT(AUTO) 3.91 MIL/uL (4.5-6.0); RED CELL DISTRIBUTION WIDTH 14.3 % (11.5-15.0); WHITE BLOOD COUNT (AUTO) 14.4 K/uL (4.3-11.0)
[2023-03-09 21:44] LABS: BILIRUBIN,DIRECT 0.1 mg/dL (0.0-0.2)
[2023-03-09 21:50] LABS: INR 1.06 (0.91-1.10); PARTIAL THROMBOPLASTIN TIME 33.5 SEC (24.3-34.3); PROTHROMBIN TIME 11.2 SECS (9.2-11.1)
[2023-03-09 21:52] LABS: CARBON DIOXIDE 29 mmol/L (21-32); CHLORIDE 104 mmol/L (98-107); POTASSIUM 3.8 mmol/L (3.5-5.1); SODIUM SERUM 142 mmol/L (136-145)
[2023-03-09 21:53] LABS: CALCIUM, SERUM 8.5 mg/dL (8.5-10.1); CREATININE 1.5 mg/dL (0.6-1.3); GLUCOSE 168 mg/dL (74-106); UREA NITROGEN, BLOOD 50 mg/dL (7-18)
[2023-03-09 21:57] LABS: ALANINE AMINOTRANSFERASE 25 U/L (12-78); ALKALINE PHOSPHATASE 85 U/L (46-116); ASPARTATE AMINOTRANSFERASE 23 U/L (15-37); BILIRUBIN,TOTAL 0.3 mg/dL (0.2-1.0)
[2023-03-09] MEDS ORDERED: PANTOPRAZOLE 40 MG VIAL ONE (22:30)
[2023-03-09] MEDS ORDERED: PANTOPRAZOLE 80 MG in IV NS 0.9% 500 ML IV ONE (22:30)
[2023-03-10 00:28] VITALS: BP_SYST 104; BP_SYST 114; BP_DIAS 65; BP_DIAS 70; TEMP 97.7; TEMP 98.4; O2SAT 95; O2SAT 98
[2023-03-10] MEDS ORDERED: ACETAMINOPHEN 325 MG TABLET PO PRN (04:30)
[2023-03-10] MEDS ORDERED: ONDANSETRON HCL/PF 4 MG/2 ML VIAL IVP PRN (04:30)
[2023-03-10] MEDS: IV NS 0.9% 1,000 ML IV PRN (05:05)
[2023-03-10 07:22] LABS: CALCIUM, SERUM 8.1 mg/dL (8.5-10.1); CARBON DIOXIDE 26 mmol/L (21-32); CHLORIDE 109 mmol/L (98-107); CREATININE 1.1 mg/dL (0.6-1.3); GLUCOSE 130 mg/dL (74-106); MAGNESIUM 2.1 mg/dL (1.8-2.4); PHOSPHORUS 2.5 mg/dL (2.5-4.9); POTASSIUM 3.6 mmol/L (3.5-5.1); SODIUM SERUM 144 mmol/L (136-145); UREA NITROGEN, BLOOD 40 mg/dL (7-18)
[2023-03-10 07:33] LABS: BASOPHILS % (AUTO) 0.3 % (0.0-2.0); EOSINOPHILS # (AUTO) 0.1 K/uL (0.0-0.7); EOSINOPHILS % (AUTO) 0.6 % (0.0-6.0); HEMATOCRIT 30 % (39-51); LYMPHOCYTES # (AUTO) 1.7 K/uL (0.8-4.8); LYMPHOCYTES % (AUTO) 16.1 % (20.0-44.0); MEAN CORPUSCULAR HEMOGLOBIN 29 PG (26.0-33.0); MEAN CORPUSCULAR HGB CONC 33 g/dl (31.0-36.0); MEAN CORPUSCULAR VOLUME 87 fL (80-96); MONOCYTES # (AUTO) 0.5 K/uL (0.1-1.30); MONOCYTES % (AUTO) 4.3 % (2.0-12.0); NEUTROPHILS # (AUTO) 8.5 K/uL (1.8-8.9); NEUTROPHILS % (AUTO) 78.7 % (43.0-81.0); PLATELET COUNT (AUTO) 183 K/uL (150-450); RED BLOOD CELL COUNT(AUTO) 3.45 MIL/uL (4.5-6.0); RED CELL DISTRIBUTION WIDTH 14.3 % (11.5-15.0); WHITE BLOOD COUNT (AUTO) 10.8 K/uL (4.3-11.0)
[2023-03-10 08:00] VITALS: BP 128/71; TEMP 98.5; O2SAT 100
[2023-03-10] MEDS ORDERED: METF-440 PO (08:13)
[2023-03-10] MEDS ORDERED: ACET-868 PO (08:13)
[2023-03-10] MEDS ORDERED: MULT-447 PO (08:13)
[2023-03-10] MEDS: PANTOPRAZOLE 40 MG VIAL IV SCH ×2 (08:39→20:45)
[2023-03-10 16:15] VITALS: BP 135/82; TEMP 98.4; O2SAT 100
[2023-03-10 20:00] VITALS: BP 114/61; TEMP 98.4; O2SAT 100
[2023-03-11] VITALS (7 sets, daily range): BP systolic 102–133; BP diastolic 42–69; TEMP 97.6–98.4; O2SAT 98–100
[2023-03-11] MEDS: IV NS 0.9% 1,000 ML IV PRN (06:03)
[2023-03-11 07:31] LABS: BASOPHILS % (AUTO) 0.3 % (0.0-2.0); EOSINOPHILS # (AUTO) 0.4 K/uL (0.0-0.7); EOSINOPHILS % (AUTO) 4.5 % (0.0-6.0); HEMATOCRIT 28 % (39-51); HEMOGLOBIN 9.1 g/dL (13.5-17.5); LYMPHOCYTES # (AUTO) 1.5 K/uL (0.8-4.8); LYMPHOCYTES % (AUTO) 17.5 % (20.0-44.0); MEAN CORPUSCULAR HEMOGLOBIN 29 PG (26.0-33.0); MEAN CORPUSCULAR HGB CONC 33 g/dl (31.0-36.0); MEAN CORPUSCULAR VOLUME 89 fL (80-96); MONOCYTES # (AUTO) 0.5 K/uL (0.1-1.30); MONOCYTES % (AUTO) 5.7 % (2.0-12.0); NEUTROPHILS # (AUTO) 6.2 K/uL (1.8-8.9); PLATELET COUNT (AUTO) 160 K/uL (150-450); RED BLOOD CELL COUNT(AUTO) 3.12 MIL/uL (4.5-6.0); RED CELL DISTRIBUTION WIDTH 14.5 % (11.5-15.0); WHITE BLOOD COUNT (AUTO) 8.7 K/uL (4.3-11.0)
[2023-03-11 07:41] LABS: ALBUMIN 2.6 g/dL (3.4-5.0); BILIRUBIN,TOTAL 0.3 mg/dL (0.2-1.0); CALCIUM, SERUM 8.3 mg/dL (8.5-10.1); MAGNESIUM 2.5 mg/dL (1.8-2.4); PHOSPHORUS 2.2 mg/dL (2.5-4.9); POTASSIUM 3.5 mmol/L (3.5-5.1); TOTAL PROTEIN, SERUM 6.8 g/dL (6.4-8.2)
[2023-03-11] MEDS: PANTOPRAZOLE 40 MG/PACK PACK PO SCH ×2 (09:03→22:07)
[2023-03-11] MEDS ORDERED: K PHOS NEUTRAL 250 MG TABLET PO ONE (15:30)
[2023-03-12] VITALS: BP 125/55; TEMP 98.1; O2SAT 98
[2023-03-12 03:07] LABS: PTH, INTACT 27 pg/mL (15-65)
[2023-03-12 05:15] VITALS: BP 120/54; TEMP 98; O2SAT 97
[2023-03-12 08:00] VITALS: BP 132/59; TEMP 97.1; O2SAT 99
[2023-03-12] MEDS: PANTOPRAZOLE 40 MG/PACK PACK PO SCH ×2 (08:16→21:31)
[2023-03-12 12:00] VITALS: BP 112/59; TEMP 98; O2SAT 99
[2023-03-12 16:00] VITALS: BP 112/59; TEMP 98; O2SAT 99
[2023-03-12 20:00] VITALS: BP 126/72; TEMP 97.6
[2023-03-13 04:00] VITALS: BP 148/74; TEMP 97.5; O2SAT 100
[2023-03-13 08:00] VITALS: BP 140/76; TEMP 98.3; O2SAT 96
[2023-03-13] MEDS: PANTOPRAZOLE 40 MG/PACK PACK PO SCH (08:31)
[2023-03-13] MEDS ORDERED: PANT40SU2 PO (09:32)
[2023-03-15 06:06] LABS: *SPE A/G RATIO 0.8 (0.7-1.7); *SPE ALBUMIN 2.7 g/dL (2.9-4.4); *SPE ALPHA-1-GLOBULIN 0.3 g/dL (0.0-0.4); *SPE ALPHA-2-GLOBULIN 0.9 g/dL (0.4-1.0); *SPE BETA GLOBULIN 0.9 g/dL (0.7-1.3); *SPE GLOBULIN, TOTAL 3.3 g/dL (2.2-3.9); *SPE M-SPIKE Not Observed g/dL (Not Observed); *SPEGAMMA GLOBULIN 1.3 g/dL (0.4-1.8)
== END 2023-03-13 14:45 | DRG 377 ==
LOC: ER 21:04 → TELE1 23:51 → MEDSG1 03-12 10:25
PROVIDERS: ADMIT Internal Medicine; ATTEND Internal Medicine
PROC: 0DB68ZX Excision of Stomach, Via Natural or Artificial Opening Endoscopic, Diagnostic (ICD-10-PCS; principal; 2023-03-10)
DX: K29.71 Gastritis, unspecified, with bleeding (principal); G93.41 Metabolic encephalopathy; N17.0 Acute kidney failure with tubular necrosis; R65.11 Systemic inflammatory response syndrome (SIRS) of non-infectious origin with acute organ dysfunction; F03.93 Unspecified dementia, unspecified severity, with mood disturbance; E44.0 Moderate protein-calorie malnutrition; E87.0 Hyperosmolality and hypernatremia; D62 Acute posthemorrhagic anemia; D72.829 Elevated white blood cell count, unspecified; E88.09 Other disorders of plasma-protein metabolism, not elsewhere classified; K20.91 Esophagitis, unspecified with bleeding; F39 Unspecified mood [affective] disorder; F25.9 Schizoaffective disorder, unspecified; Z68.26 Body mass index [BMI] 26.0-26.9, adult; D63.8 Anemia in other chronic diseases classified elsewhere; I35.0 Nonrheumatic aortic (valve) stenosis
CPT/HCPCS: 36415; 71045-TC; 76770-TC; 80048-TC; 80053-TC; 80076-TC; 82550-TC; 83735-TC; 83970; 84100-TC; 84155; 84165; 84484-TC; 85025-TC; 85730-TC; 86850-TC; A4223; C9113; G0378; J2704; J3490; J7030; J7040